=== PATIENT | male | born 1960 | race Caucasian/White ===

== ENCOUNTER 2018-06-21 09:53 | Inpatient (IN) | payer MEDICARE, MEDICAID ==
--- NOTE | 2018-06-21 10:11 | ED ---
Back Pain - HPI Summary HPI Summary: Pt is a 58 y/o male who presents to the ED c/o back pain for 2 days. He was in the ED 2 days ago, and an XR was negative for fracture or dislocation. Pt denies any recent fall, but broke his toe due to a fall 11 days ago. He c/o 10/ 10 left lower back pain radiating down his leg, decreased appetite, and intermittent dizziness. Pt denies any CP, SOB, lightheadedness, dysuria, fever, or nausea. Pain is worse with movement. He had Ibuprofen this morning at 8:00. PMHx anxiety, HTN, developmental delay. No PMHx kidney stones or UTI. 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 Onset/Duration: Gradual Onset, Lasting Days - 2, Still Present Timing: Constant Back Pain Location: Is Discrete @ - Left lower Severity Currently: Mild Pain Intensity: 2 Pain Scale Used: 0-10 Numeric Aggravating Symptom(s): Movement Alleviating Symptom(s): Nothing Associated Signs And Symptoms: Positive: Negative - Allergies/Home Medications Allergies/Adverse Reactions: Allergies Allergy/AdvReac Type Severity Reaction Status Date / Time No Known Allergies Allergy Verified 06/19/18 13:49 PMH/Surg Hx/FS Hx/Imm Hx Endocrine/Hematology History: Denies: Hx Diabetes, Hx Thyroid Disease Cardiovascular History: Reports: Hx Hypertension - on meds Respiratory History: Denies: Hx Asthma, Hx Chronic Obstructive Pulmonary Disease (COPD) GI History: Denies: Hx Ulcer History: Denies: Hx Kidney Stones, Other Problems/Disorders - UTI Neurological History: Reports: Hx Developmental Delay Psychiatric History: Reports: Hx Anxiety - Surgical History Surgery Procedure, Year, and Place: 2008-RIGHT HIP REPLACEMENT Infectious Disease History: No Infectious Disease History: Denies: Hx Hepatitis, Hx Human Immunodeficiency Virus (HIV), Traveled Outside the [place] in Last 30 Days - Family History Known Family History: Positive: Cardiac Disease, Hypertension - Social History Alcohol Use: None Hx Substance Use: No Substance Use Type: Reports: None Hx Tobacco Use: No Smoking Status (MU): Never Smoked Tobacco Review of Systems Negative: Fever Negative: Chest Pain Negative: Shortness Of Breath Positive: Other - Decreased appetite. Negative: Nausea Negative: dysuria Positive: Myalgia - Back pain Neurological: Other - Dizziness, NEGATIVE: lightheadedness All Other Systems Reviewed And Are Negative: Yes Physical Exam - Summary Physical Exam Summary: GENERAL: Patient is a well developed and nourished M who is lying comfortable in the stretcher. Patient is not in any acute respiratory distress. HEAD AND FACE: Normocephalic EYES: PERRLA, EOMI x 2. EARS: Hearing grossly intact. MOUTH: Oropharynx within normal limits. NECK: Supple, trachea is midline, no adenopathy, no JVD, no carotid bruit. CHEST: Symmetric, no tenderness at palpation LUNGS: Clear to auscultation bilaterally. No wheezing or crackles. CVS: Regular rate and rhythm, S1 and S2 present, no murmurs or gallops appreciated. ABDOMEN: Soft. Bowel sounds are normal. No abdominal abnormal pulsations. Tender to LS spine area, no step off. Tender to left paraspinal lumbar region. Straight leg test negative. EXTREMITIES: Full ROM in all major joints, no edema, no cyanosis or clubbing. NEURO: Alert and oriented x 3. No acute neurological deficits. Speech is normal and follows commands. SKIN: Dry and warm Triage Information Reviewed: Yes Vital Signs On Initial Exam: Initial Vitals Temp Pulse Resp BP Pulse Ox 98 F 66 16 162/86 95 06/21/18 10:03 06/21/18 10:03 06/21/18 10:03 06/21/18 10:03 06/21/18 10:03 Vital Signs Reviewed: Yes Diagnostics - Vital Signs Vital Signs Temp Pulse Resp BP Pulse Ox 06/21/18 10:03 98 F 66 16 162/86 95 - Laboratory Result Diagrams: 06/22/18 06:41 06/22/18 06:41 Lab Statement: Any lab studies that have been ordered have been reviewed, and results considered in the medical decision making process. - CT Lumbar Spine CT CT Interpretation: Positive (See Comments) - There is progressive degenerative disc disease in the lower lumbar spine when compared to July 27, 2010 however no new compression fracture is noted. Diffuse osteopenia is noted. ED physician reviewed radiology report. CT Interpretation Completed By: Radiologist CT A/P CT Interpretation: No Acute Changes - No definite evidence of obstructive uropathy. No abnormal masses or fluid collections are noted. ED physician reviewed radiology report. CT Interpretation Completed By: Radiologist - EKG 10:31 Cardiac Rate: NL - 61 bpm EKG Rhythm: Sinus Rhythm EKG Interpretation: Interventricular conduction delay Re-Evaluation - Re-Evaluation First Eval Re-Evaluation Time: 11:54 Change: Unchanged Comment: Informed pt of results. Back Pain Course/Dx - Course Course Of Treatment: Pt is a 58 y/o male who presents to the ED c/o back pain for 2 days. He was in the ED 2 days ago, and an XR was negative for fracture or dislocation. Pt denies any recent fall, but broke his toe due to a fall 11 days ago. He c/o 10/10 left lower back pain radiating down his leg, decreased appetite, and intermittent dizziness. Pt denies any CP, SOB, lightheadedness, dysuria, fever, or nausea. Pain is worse with movement. He had Ibuprofen this morning at 8:00. A physical exam revealed tender to LS spine area, no step off. Tender to left paraspinal lumbar region. Straight leg test negative. A lumbar spine CT revealed there is progressive degenerative disc disease in the lower lumbar spine when compared to July 27, 2010 however no new compression fracture is noted. Diffuse osteopenia is noted. A CT A/P revealed No definite evidence of obstructive uropathy. No abnormal masses or fluid collections are noted. An EKG revealed normal rate of 61 bpm and Interventricular conduction delay. Spoke to Dr. Bardales at 15:01, who accepts pt for admission. [facility] unless [facility], and he failed to ambulate. Final dx are degenerative disc disease of the lumbar spine, and difficulty ambulating. Pt will be admitted and is agreeable with this plan. - Diagnoses Provider Diagnoses: Degenerative disc disease, lumbar, Unable to ambulate - Provider Notifications Discussed Care Of Patient With: Yocasta Bardales Time Discussed With Above Provider: 15:01 Instructed by Provider To: Other - Dr. Bardales accepts pt for admission. He cannot [facility] back to the jail unless he can walk, and pt failed to ambulate. Discharge - Sign-Out/Discharge Documenting (check all that apply): Patient Departure - Admit - Discharge Plan Condition: Stable Disposition: ADMITTED TO [facility] - Billing Disposition and Condition Condition: STABLE Disposition: Admitted to [facility] - Attestation Statements Document Initiated by Hillibe: Yes Documenting Scribe: Alesha Morris Provider For Whom Familia is Documenting (Include Credential): Emeterio Hloman MD Scribe Attestation: Alesha Wren, scribed for Emeterio Holman MD on 06/22/18 at 0725. Scribe Documentation Reviewed: Yes Provider Attestation: The documentation as recorded by the hillibAlesha dumas accurately reflects the service I personally performed and the decisions made by me, Emeterio Holman MD
[2018-06-21] MEDS ORDERED: NS 0.9% 1000 ML* 1,000 ML IV ONE (10:26)
[2018-06-21 10:55] LABS: ABS Basophils 0 10^3/ul (0-0.2); ABS Eosinophils 0.2 10^3/ul (0-0.6); ABS Lymphocytes 0.8 10^3/ul (1.0-4.8); ABS Monocytes 0.5 10^3/ul (0-0.8); ABS Neutrophils 6.2 10^3/ul (1.5-7.7); ABS Nucleated RBC 0 10^3/ul; Eosinophil % 2.3 % (0-6); Hematocrit 37 % (42-52); Hemoglobin 12.4 g/dl (14.0-18.0); Lymphocyte % 10.2 % (25-47); Mean Corpuscular HGB Conc 33 g/dl (31-36); Mean Corpuscular Hemoglobin 31 pg (27-31); Mean Corpuscular Volume 93 fL (80-94); Mean Platelet Volume 8.6 um3 (7.4-10.4); Nucleated Red Blood Cells % 0.1; Platelet Count 188 10^3/ul (150-450); Red Cell Distribution Width 13 % (10.5-15); White Blood Count 7.7 10^3/ul (3.5-10.8)
[2018-06-21 11:13] LABS: EGFR Non-African American 60.6 (>60)
--- NOTE | 2018-06-21 11:22 | RAD ---
Indication: Flank pain evaluate for calculi CT of the abdomen and pelvis was performed without oral or IV contrast administration. Coronal and sagittal reconstructed images were obtained. Comparison is made with previous exam dated March 16, 2014. The lung bases demonstrate no pleural fluid, nodules or masses. Heart is of normal size without evidence of pericardial effusion. Liver is normal in size. No focal lesions or intrahepatic duct dilatation is noted. The spleen is normal in size. Pancreas demonstrates no mass or pancreatic duct dilatation. The common duct is not dilated. The patient is status post cholecystectomy. The spleen is normal in size. No adrenal masses are noted. The kidneys demonstrate no hydronephrosis. No retroperitoneal lymphadenopathy is noted. CT of the pelvis demonstrates no retroperitoneal or pelvic lymphadenopathy. The urinary bladder is unremarkable. The prostate is otherwise unremarkable. The patient has a large amount of stool in the rectal vault. No hernias are noted. The bony structures demonstrate heterotopic ossification around the right hip. IMPRESSION: No definite evidence of obstructive uropathy. No abnormal masses or fluid collections are noted. Patient status post cholecystectomy.
--- NOTE | 2018-06-21 11:26 | RAD ---
Indication: Back pain. CT of the lumbar spine was obtained in the axial plane. Sagittal and coronal reconstructed images were obtained. Comparison is made with previous exam dated July 27, 2010. There is diffuse osteopenia noted. Degenerative disc disease at L5-S1 with spondylytic ridge flattens the thecal sac. No central foraminal stenosis is noted. Vertebral bodies demonstrate grade 1 spondylolisthesis of L4 on 5. No fracture is identified. Degenerative disc disease at L3-L4 is noted. Retrolisthesis of L3 on 4 is noted which is unchanged from previous exam. Mild kyphosis deformity is noted at L1-L2 and T12-L1. Spinal canal appears to be intact. IMPRESSION: There is progressive degenerative disc disease in the lower lumbar spine when compared to July 27, 2010 however no new compression fracture is noted. Diffuse osteopenia is noted.
[2018-06-21] MEDS ORDERED: Magnesium CITRATE* 300 ML BTL PO ONE (11:33)
[2018-06-21 14:10] LABS: Urine Appearance Clear; Urine Blood Negative (Negative); Urine Color Yellow; Urine Ketones 1+ (Negative); Urine Protein Negative (Negative); Urine Specific Gravity 1.018 (1.010-1.030); Urine Urobilinogen Negative (Negative)
[2018-06-21] MEDS ORDERED: Morphine VIAL* 10 MG/ML 1 ML VIAL IV ONE (14:12)
[2018-06-21 15:44] LABS: INR 1.1 (0.77-1.02)
[2018-06-21] MEDS ORDERED: Ketorolac INJ* 15 MG/ML 1 ML VIAL IV PUSH ONE (15:57)
[2018-06-21] MEDS: Acetaminophen TAB* 325 MG PO SCH ×2 (17:47→22:02)
--- NOTE | 2018-06-21 19:36 | HP ---
CC: Dr. Gilbert * HISTORY AND PHYSICAL: DATE OF ADMISSION: 06/21/18 PROVIDER: Joselin Hester NP ATTENDING PHYSICIAN: Dr. Boyle * (report dictated by Joselin Hester NP). PRIMARY CARE PROVIDER: Dr. Gilbert. CHIEF COMPLAINT: Back pain. HISTORY OF PRESENT ILLNESS: Mr. Butler is a very pleasant 58-year-old male with a past medical history of intellectual disability, cardiomyopathy, history of DVT previously on coumadin, anxiety, hypertension, who came to the emergency department via EMS for complaint of back pain. He was just in the emergency department 2 days ago for complaint of back pain and had x-rays that were negative for fracture or dislocation and was sent home. He reports a fall approximately 10 days ago in which he suffered a right big toe fracture. Today , in the emergency department, he underwent abdomen and pelvis CT as well as a lumbar spine CT, which showed no acute fractures or obstructive uropathy or abnormal masses or fluid collections. The patient was unable to ambulate in the ER and will be admitted for intractable back pain. The patient was evaluated in the emergency department, where he was found to be lying in bed, alert and oriented x3. The patient is able to roll [id number] very easily and has good range of motion in his lower extremities, but has difficulty sitting up in the bed reporting low lumbar pain radiating into his right gluteus down his right leg. He denies numbness, tingling. He denies bowel or bladder loss. No recent fevers, chills, nausea, vomiting, diarrhea. He denies abdominal pain. No dysuria, hematuria. He reports good appetite. He reports otherwise he has been feeling well except for his right fractured big toe in which he reports he has been taking ibuprofen for. PAST MEDICAL HISTORY: 1. Chronic kidney disease. 2. Intellectual disability. 3. Hypertension. 4. Obesity. 5. Cardiomyopathy. 6. History of DVT, previously on Coumadin. 7. Anxiety. 8. Hyperlipidemia. 9. History of right hip fracture. MEDICATIONS: 1. Atenolol 25 mg po daily 2. Ibuprofen 400 mg po Q8hr prn 3. Prozac 20 mg po daily 4. Lipitor 10 mg po daily 5. Potassium 10 meq po daily Please note the med rec is currently being completed, the patient has several topical medications. ALLERGIES: No known allergies. FAMILY HISTORY: Unknown. SOCIAL HISTORY: The patient denies tobacco or alcohol abuse. He currently lives at [facility] and is fairly independent. He lists his brother, Russell Butler, as the healthcare proxy, as well as Renée, [phone]. REVIEW OF SYSTEMS: A 14-point review of systems was performed. All the pertinent positives and negatives are mentioned in the history of present illness. Otherwise, are negative. PHYSICAL EXAMINATION GENERAL APPEARANCE: A 58-year-old male, alert and oriented x3, notable mild MR , in no acute distress. [id number] historian. VITAL SIGNS: Temperature 98.0, heart rate 64, respirations 18, pulse oximetry 96 % on room air, blood pressure 139/66. HEENT: Head is normocephalic, atraumatic. Pupils are equal and reactive to light. Oropharynx is clear. Moist mucous membranes. NECK: Supple. LUNGS: Clear to auscultation bilaterally. Good aeration throughout. No accessory muscle use. CARDIAC: S1, S2. Regular rate and rhythm. Trace lower extremity edema. ABDOMEN: Slightly obese, soft, nontender, nondistended. Normal bowel sounds throughout. No CVA tenderness. MUSCULOSKELETAL: Strength is 5/5 throughout and is symmetric. The patient has difficulty when going from the supine position and sitting up, unable to sit up without rolling to his side first. He has some lumbosacral midline tenderness radiating to his right sacroiliac joints. Good sensation throughout. Skin: Right big toe has skin intact with no open areas, no ecchymosis noted. mild tenderness with palpation. can wiggle toe w/o guarding. NEURO: Cranial nerves II through XII are grossly intact. No focal deficits noted. LABORATORY DATA AND DIAGNOSTIC STUDIES: Sodium 137, potassium 4.7, chloride 108, carbon dioxide 21, anion gap 8, BUN 20, creatinine 1.22, glucose 104, lactic acid 1.3, calcium 9.3. Total bilirubin 0.90, AST 19, ALT 15, alkaline phosphatase 85. Troponin 0.01. High sensitivity C-reactive protein 118.4, total protein 7.2, albumin 3.5. INR 1.10. WBC is 7.7, RBC 4.00, Hgb 12.4, Hct 37, MCV 93, MCH 31, MCHC 33, RDW 13, platelet count 188. ESR 80. Abdomen and pelvis CT, impression: "No definite evidence of obstructive uropathy. No abdominal masses or fluid collections were noted." Lumbar spine CT, impression: "There is progressive degenerative disk disease in the lower lumbar spine when compared to 07/27/10, however no new compression fracture was noted. Diffuse osteopenia was noted." EKG, sinus rhythm with a rate of 61. ASSESSMENT AND PLAN: Mr. Butler is a 58-year-old male with a past medical history of intellectual disability, cardiomyopathy, history of deep vein thrombosis previous on coumadin, anxiety, hypertension, who presents to emergency department with low back pain. The patient will be admitted for an intractable back pain. 1. Intractable back pain. The patient did have a fall approximately 10 days ago. It was also reported that he had a massage several days ago, it is possible this worsened his back pain. The patient has good range of motion in his lower extremities, but it appears that this is most likely musculoskeletal and he has a lumbar radiculopathy with possible right sacroiliitis. Will obtain MRI due to him not being able to bear weight. PT and OT to evaluate the patient. We will admit for pain control and mobility. He will need to be able to ambulate well prior to retuning to the [facility]. Will start acetaminophen scheduled 975 mg p.o. q.8 hours. We will hold off on further NSAIDs due to his renal function. The patient does have acute inflammatory markers with an elevated CRP and ESR. 2. Chronic kidney disease. It appears to be around baseline. 3. Hypertension. Controlled. continue atenolol 4. Intellectual disability. The patient is fairly high-functioning and is a good historian. Supportive treatment. 5. Hyperlipidemia. Continue Lipitor. 6. Depression and anxiety. Continue Prozac. 7. DVT prophylaxis. Heparin subcu. 8. Code status. Full code. 9. Hospital status. Observation. 10. Disposition. Medical floor. TIME SPENT: Approximately 60 minutes was spent on this admission. JOSELIN HESTER, LAI [id number]/[facility] #: [id number] DION
--- NOTE | 2018-06-21 21:42 | RAD ---
EXAM: MR Thoracic Spine Without Intravenous Contrast CLINICAL HISTORY: 58 years old, male; Pain; Other: Intractable back pain; Patient HX: Non traumatic left back pain that started on saturday. Elevated esr TECHNIQUE: Magnetic resonance images of the thoracic spine without intravenous contrast in multiple planes. COMPARISON: No relevant prior studies available. FINDINGS: Vertebrae: The normal thoracic kyphosis. Normal marrow signal intensity. Vertebral body heights are maintained. No acute fracture. Discs/spinal canal/neural foramina: T1-T2:There is no disc space narrowing. No canal stenosis or foraminal narrowing. The facet joints are normal. T2-T3:There is no disc space narrowing. No canal stenosis or foraminal narrowing. The facet joints are normal. T3-T4:There is no disc space narrowing. No canal stenosis or foraminal narrowing. The facet joints are normal. T4-T5: Anterior endplate osteophyte disc bulge complex. No canal stenosis or neuroforaminal narrowing. T5-T6: Anterior endplate osteophyte disc bulge complex. No canal stenosis or neural foraminal narrowing. T6-T7: Anterior distal endplate osteophyte complex. No canal stenosis or neuroforaminal narrowing. T7-T8: Anterior endplate osteophyte disc bulge complex. No canal stenosis or neural foraminal narrowing. T8-T9: Anterior plate osteophyte disc bulge complex. No canal stenosis or neural foraminal narrowing. T9-T10: Anterior endplate osteophyte disc bulge complex. No canal stenosis or neural foraminal narrowing. T10-T11: Anterior plate osteophyte disc bulge complex. No canal stenosis or neural foraminal narrowing. T11-T12: Anterior endplate osteophyte disc bulge complex. No canal stenosis or neural foraminal narrowing. Spinal cord: Normal signal intensity of the visualized spinal cord. No epidural collections. Soft tissues: Normal. IMPRESSION: 1. No evidence of osteomyelitis discitis. 2. Mild multilevel thoracic spondylopathy.
--- NOTE | 2018-06-21 21:53 | RAD ---
EXAM: MR Lumbar Spine Without Intravenous Contrast CLINICAL HISTORY: 58 years old, male; Pain; Other: Intractable back pain; Patient HX: Non traumatic left back pain that started on thursday. Elevated esr; Additional info: Intractable back pain/elevated esr TECHNIQUE: Magnetic resonance images of the lumbar spine without intravenous contrast in multiple planes. COMPARISON: No relevant prior studies available. FINDINGS: Vertebrae: No partially reversed lumbar lordosis with grade 1 degenerative anterolisthesis of L4 on L5 and retrolisthesis of L5 on S1. Marrow: Vertebral body heights are maintained. Bilateral vertical T1 hypointense linear foci extend through the sacrum bilaterally without definite extension into the neural foramina. Associated adjacent marrow edema. Digital edema seen in the soft tissues overlying the sacrum anteriorly. Normal lumbar marrow signal intensity. Spinal cord: Cauda equina terminates at T12. Normal signal intensity the visualized cord. Soft tissues: See findings above and below. DISCS/SPINAL CANAL/NEURAL FORAMINA: L1-L2: Partial osseous fusion of the disc space with complete disc space loss. Endplate osteophyte disc bulge complex causing borderline canal stenosis.The facet joints are normal. No neural foraminal narrowing. L2-L3: Mild disc height loss with hyperintensity in the posterior half of the disc space which does not extend into or involve the endplates or the surrounding paravertebral soft tissues. No canal stenosis.The facet joints demonstrate mild degenerative hypertrophy and sclerosis. Mild neural foraminal narrowing. L3-L4: Complete disc height loss with endplate osteophyte disc bulge complex causing no canal stenosis. Bilateral lateral recess narrowing with abutment of the descending L4 nerve roots.The facet joints demonstrate mild degenerative hypertrophy and sclerosis. Severe left and moderate right neural foraminal narrowing with slight flattening of the exiting left L3 nerve root. L4-L5: Disc height loss symmetric disc bulge endplate osteophyte complex and ligament flavum hypertrophy causing severe canal stenosis and splinting of the central nerve roots. Bilateral lateral recess narrowing with likely compression of the descending L5 nerve roots. Severe bilateral neural foraminal narrowing and flattening of the exiting L4 roots. L5-S1: Disc height loss with symmetric endplate osteophyte disc bulge complex causing moderate canal stenosis. Bilateral lateral recess narrowing with abutment of the descending S1 nerve roots without flattening. Severe bilateral neural foraminal narrowing with flattening of the exiting L5 nerve roots. IMPRESSION: 1. Bilateral zone 1 acute sacral fractures. No lumbar spine fractures. 2. Severe multilevel lumbar spondylopathy causing severe L4-L5 and moderate L5-S1 canal stenosis and likely compression of the left L3, bilateral L4, and bilateral L5 nerve roots.
[2018-06-21] MEDS: Atorvastatin* 10 MG TAB PO SCH (22:02)
[2018-06-21] MEDS: Heparin VIAL(*) 5000 UNITS/ML VIAL (FIVE THOUSAND) SUBCUT SCH (22:02)
[2018-06-22] MEDS: Heparin VIAL(*) 5000 UNITS/ML VIAL (FIVE THOUSAND) SUBCUT SCH ×3 (05:45→21:21)
[2018-06-22] MEDS: Acetaminophen TAB* 325 MG PO SCH ×4 (05:49→22:31)
[2018-06-22 07:00] LABS: ABS Basophils 0 10^3/ul (0-0.2); ABS Eosinophils 0.3 10^3/ul (0-0.6); ABS Lymphocytes 1.1 10^3/ul (1.0-4.8); ABS Monocytes 0.6 10^3/ul (0-0.8); ABS Nucleated RBC 0 10^3/ul; Eosinophil % 4.7 % (0-6); Hematocrit 34 % (42-52); Hemoglobin 11.6 g/dl (14.0-18.0); Lymphocyte % 18.3 % (25-47); Mean Corpuscular HGB Conc 34 g/dl (31-36); Mean Corpuscular Hemoglobin 32 pg (27-31); Mean Corpuscular Volume 92 fL (80-94); Mean Platelet Volume 8.2 um3 (7.4-10.4); Nucleated Red Blood Cells % 0; Platelet Count 171 10^3/ul (150-450); Red Blood Count 3.68 10^6/ul (4.00-5.40); Red Cell Distribution Width 13 % (10.5-15); White Blood Count 6.1 10^3/ul (3.5-10.8)
[2018-06-22 07:04] LABS: INR 1.05 (0.77-1.02)
[2018-06-22 07:22] LABS: EGFR Non-African American 68.3 (>60)
[2018-06-22] MEDS ORDERED: Acetaminophen TAB* 325 MG PO PRN (08:26)
[2018-06-22] MEDS: Lidocaine PATCH 5%* 1 PATCH TRANSDERM SCH (09:07)
[2018-06-22] MEDS: FLUoxetine CAP* 20 MG PO SCH (09:08)
[2018-06-22] MEDS: Atenolol TAB* 25 MG PO SCH (09:08)
[2018-06-22] MEDS: Ascorbic Acid TAB* 500 MG PO SCH (09:12)
--- NOTE | 2018-06-22 10:28 | PN ---
Subjective Date of Service: 06/22/18 Interval History: pt stated that he fell on his "butt" at the end of May 2018 He had problems with walking ever since. denies back pain before today c/o b/l back pain in the buttock area Objective Active Medications: Acetaminophen (Tylenol Tab*) 975 mg PO Q6H [facility] Last Admin: 06/22/18 05:49 Dose: 975 mg Acetaminophen (Tylenol Tab*) 650 mg PO Q4H PRN PRN Reason: TEMP > 100 or PAIN Ascorbic Acid (Vitamin C Tab*) 500 mg PO DAILY [facility] Last Admin: 06/22/18 09:12 Dose: 500 mg Atenolol (Tenormin Tab*) 25 mg PO DAILY [facility] Last Admin: 06/22/18 09:08 Dose: 25 mg Atorvastatin Calcium (Lipitor*) 10 mg PO BEDTIME [facility] Last Admin: 06/21/18 22:02 Dose: 10 mg Fluoxetine HCl (Prozac Cap*) 20 mg PO DAILY [facility] Last Admin: 06/22/18 09:08 Dose: 20 mg Heparin Sodium (Porcine) (Heparin Vial(*)) 5,000 units SUBCUT Q8HR [facility] Last Admin: 06/22/18 05:45 Dose: 5,000 units Lidocaine (Lidoderm 5% Patch*) 1 patch TRANSDERM DAILY [facility] Last Admin: 06/22/18 09:07 Dose: 1 patch Pharmacy Profile Note (Lidocaine Patch Remove*) 1 note PATCH OFF 2100 [facility] Vital Signs - 8 hr 06/22/18 06/22/18 03:49 07:34 Temperature 97.5 F 98.8 F Pulse Rate 53 59 Respiratory 20 16 Rate Blood Pressure 147/74 130/66 (mmHg) O2 Sat by Pulse 98 94 Oximetry Oxygen Devices in Use Now: None Appearance: 58 yo M in nAD, aAOx3, poor historian, problems with word finding- chronic Eyes: No Scleral Icterus, PERRLA Ears/Nose/Mouth/Throat: NL Teeth, Lips, Gums, Mucous Membranes Moist Neck: NL Appearance and Movements; NL JVP, Trachea Midline Respiratory: Symmetrical Chest Expansion and Respiratory Effort, Clear to Auscultation Cardiovascular: NL Sounds; No Murmurs; No JVD, RRR Abdominal: NL Sounds; No Tenderness; No Distention, - - back, sacral area: tender to palpation on b/l buttock area Lymphatic: No Cervical Adenopathy, No Axillary Adenopathy, No Auricular Adenopathy Skin: No Rash or Ulcers, No Nodules or Sclerosis Neurological: Alert and Oriented x 3, NL Muscle Strength and Tone Result Diagrams: 06/22/18 06:41 06/22/18 06:41 Assess/Plan/Problems-Billing Assessment: 58 yo M with h/o intellectual disability, HTN, dyslipidemia, who lives at [facility] and ambulates with a walker presents c/o lower back pain MRI shows b/l sacral bone fx - Patient Problems (1) Closed zone 1 fracture of sacrum Comment: pt reports a fall at and of May 2018 cont PT/OT pain control (2) Lumbar spinal stenosis Comment: noted on MRI Pt does not appear to have neuro deficit and did not c/o back pain prior to fall in 05/2018 will d/w neurosurgery, cont PT (3) HTN (hypertension) Comment: controlled, cont Atenolol (4) Dyslipidemia Comment: cont lipitor (5) DVT prophylaxis Comment: HSQ Status and Disposition: OBV will be changed to inpatient for b/l sacral bone fx, pt needs more PT , possible STR
[2018-06-22] MEDS ORDERED: Morphine INJ* 2 MG/ML 1 ML SYRINGE (TWO MG - NEW SYRINGE VERSION) IV PRN (10:30)
[2018-06-22] MEDS: Atorvastatin* 10 MG TAB PO SCH (20:55)
[2018-06-22] MEDS: Lidocaine Patch REMOVE* 1 NOTE MISC PATCH OFF SCH (21:24)
[2018-06-23] MEDS: Acetaminophen TAB* 325 MG PO SCH ×4 (04:03→22:24)
[2018-06-23] MEDS: Heparin VIAL(*) 5000 UNITS/ML VIAL (FIVE THOUSAND) SUBCUT SCH ×3 (07:14→22:25)
[2018-06-23] MEDS: FLUoxetine CAP* 20 MG PO SCH (08:50)
[2018-06-23] MEDS: Atenolol TAB* 25 MG PO SCH (08:51)
[2018-06-23] MEDS: Lidocaine PATCH 5%* 1 PATCH TRANSDERM SCH (08:51)
[2018-06-23] MEDS: Ascorbic Acid TAB* 500 MG PO SCH (08:51)
--- NOTE | 2018-06-23 12:44 | PN ---
Subjective Date of Service: 06/23/18 Interval History: pt is about to try to get up with PT. Fearful, but encouraged by staff. No new complaints. Still c/o his "hips hurting" Objective Active Medications: Acetaminophen (Tylenol Tab*) 975 mg PO Q6H [facility] Last Admin: 06/23/18 10:46 Dose: 975 mg Acetaminophen (Tylenol Tab*) 650 mg PO Q4H PRN PRN Reason: TEMP > 100 or PAIN Ascorbic Acid (Vitamin C Tab*) 500 mg PO DAILY [facility] Last Admin: 06/23/18 08:51 Dose: 500 mg Atenolol (Tenormin Tab*) 25 mg PO DAILY [facility] Last Admin: 06/23/18 08:51 Dose: 25 mg Atorvastatin Calcium (Lipitor*) 10 mg PO BEDTIME [facility] Last Admin: 06/22/18 20:55 Dose: 10 mg Fluoxetine HCl (Prozac Cap*) 20 mg PO DAILY [facility] Last Admin: 06/23/18 08:50 Dose: 20 mg Heparin Sodium (Porcine) (Heparin Vial(*)) 5,000 units SUBCUT Q8HR [facility] Last Admin: 06/23/18 12:34 Dose: 5,000 units Lidocaine (Lidoderm 5% Patch*) 1 patch TRANSDERM DAILY [facility] Last Admin: 06/23/18 08:51 Dose: 1 patch Morphine Sulfate (Morphine Inj ((Syringe))*) 1 mg IV Q4H PRN PRN Reason: PAIN Pharmacy Profile Note (Lidocaine Patch Remove*) 1 note PATCH OFF 2100 [facility] Last Admin: 06/22/18 21:24 Dose: 1 note Vital Signs - 8 hr 06/23/18 06/23/18 07:40 08:00 Temperature 97.5 F Pulse Rate 54 Respiratory 16 18 Rate Blood Pressure 128/69 (mmHg) O2 Sat by Pulse 99 Oximetry Oxygen Devices in Use Now: None Appearance: 58 yo m in NAD, AAOx2, significant dysarthia makes communication limited Eyes: No Scleral Icterus, PERRLA Ears/Nose/Mouth/Throat: NL Teeth, Lips, Gums, Mucous Membranes Moist Neck: NL Appearance and Movements; NL JVP, Trachea Midline Respiratory: Symmetrical Chest Expansion and Respiratory Effort, Clear to Auscultation Cardiovascular: NL Sounds; No Murmurs; No JVD, RRR Abdominal: NL Sounds; No Tenderness; No Distention, No Hepatosplenomegaly, - - back-tender on b/l buttocks Lymphatic: No Cervical Adenopathy Extremities: No Edema, No Clubbing, Cyanosis Skin: No Rash or Ulcers, No Nodules or Sclerosis Neurological: Alert and Oriented x 3, NL Muscle Strength and Tone Result Diagrams: 06/22/18 06:41 06/22/18 06:41 Microbiology and Other Data: Microbiology 06/21/18 10:44 Aerobic Blood Culture - Preliminary Blood Venous No Growth Day 2 Anaerobic Blood Culture - Preliminary No Growth Day 2 Assess/Plan/Problems-Billing Assessment: 58 yo M with h/o intellectual disability, HTN, dyslipidemia, who lives at [facility] and ambulates with a walker presents c/o lower back pain MRI shows b/l sacral bone fx - Patient Problems (1) Closed zone 1 fracture of sacrum Comment: pt reports a fall at and of May 2018 cont PT/OT pain control (2) Lumbar spinal stenosis Comment: noted on MRI Pt does not appear to have neuro deficit and did not c/o back pain prior to fall in 05/2018 D/w neurosurgery( Dr. Barrios), cont PT, f/u with enurosurgery as outpatient (3) HTN (hypertension) Comment: controlled, cont Atenolol (4) Dyslipidemia Comment: cont lipitor (5) CRP elevated Comment: and ESR-? due to inflammatory reaction after a fall? No evidence of infection so far, will recheck CRP in aM (6) DVT prophylaxis Comment: HSQ Status and Disposition: inpatient awaiting STR
--- NOTE | 2018-06-23 19:51 | DS ---
CC: Dr. Gilbert; Dr. Celeste, the Director of [facility] * DISCHARGE SUMMARY: DATE OF ADMISSION: 06/21/18 DATE OF ANTICIPATED DISCHARGE: 06/24/18 Please also note and please regard this discharge summary as an initial history and physical of the patient's admission to [facility] that is planned to occur on 06/24/18. PRIMARY CARE PROVIDER: Dr. Gilbert. DISCHARGE DIAGNOSES: 1. Status post fall with resultant bilateral T1 zone closed sacral bone fractures. 2. Acquired lumbar spinal stenosis. 3. Physical deconditioning. SECONDARY DIAGNOSES: 1. History of chronic kidney disease. 2. History of intellectual disability. 3. Hypertension. 4. Obesity. 5. History of cardiomyopathy. 6. History of deep venous thrombosis, previously on Coumadin. 7. History of anxiety. 8. Hyperlipidemia. 9. History of right hip fracture in the past. MEDICATIONS AT DISCHARGE: Include: 1. Acetaminophen 650 mg every 4 hours p.r.n. 2. Vitamin C 500 mg daily. 3. Atenolol 25 mg daily. 4. Lipitor 10 mg at bedtime. 5. Prozac 20 mg daily. 6. Ibuprofen 400 mg every 8 hours p.r.n. 7. Nizoral cream 2% one application monthly. 8. Metronidazole topical cream 0.75% one topical to face at bedtime. 9. Mouthwash 5 mL swish and spit b.i.d. 10. Triple antibiotic ointment topical b.i.d. to affected areas on the skin. 11. Potassium chloride 10 mEq daily. 12. Silvadene 1 topically daily to affected area on the skin. 13. Kenalog cream 1 topical daily p.r.n. to affected skin. 14. Lidocaine patch 5% one patch transdermally to painful area on the back. LABORATORY DATA AND STUDIES PERFORMED DURING THE HOSPITAL STAY: Included: On 06/22/18, white blood cell count of 6.1, hemoglobin of 11.6, hematocrit of 34, and platelets of 171. Sodium was 139, potassium 4.6, chloride 109, carbon dioxide 25, BUN 23, creatinine 1.1. C-reactive protein at admission was 123 and repeat C- reactive protein 24 hours later was 92. The patient's ESR initially was 80 and fell down to 67 on 06/22/18. Urinalysis was grossly unremarkable. Blood cultures obtained on admission were negative. Thoracic spine MRI obtained on 06/21/18, impression: "No evidence of osteomyelitis or diskitis. Multilevel thoracic spondylopathy." Lumbar spine MRI, impression: 1. "Bilateral zone 1 acute sacral fractures. No lumbar spine fractures. 2. Severe multilevel lumbar spondylopathy causing severe L4-L5 and moderate L5- S1 central canal stenosis and likely compression of the left L3 and bilateral L4 and bilateral L5 nerve roots." Abdomen and pelvis CT obtained on 06/21/18, impression: "No definitive evidence of obstructive uropathy. No abdominal masses or fluid collections are noted. The patient is status post cholecystectomy." Lumbar spine CT obtained on 06/21/18, impression: "There is progressive degenerative disk disease in the lower lumbar spine when compared to 07/27/10. However, no new compression fracture is noted. Diffuse osteopenia is noted." HOSPITALIZATION COURSE: Romulo Butler is a very nice 58-year-old male with history of hypertension and intellectual disability, who lives at [facility] and at his baseline ambulates with either regular walker or a cane. The patient stated that he fell at the end of May of 2018 and landed on his buttocks. Since then, he has had problems with bilateral hip pain, left more than right. He came to the emergency department, evaluated once and nothing was found. Subsequently, he came back on 06/21/18 complaining of severe pain and inability to ambulate. At that point, he was placed on overnight observation, and although initial CT scans did not show any abnormalities, lumbar spine MRI showed bilateral sacral ala fractures. The patient continued to be evaluated by Physical Therapy during his hospital stay and short-term rehabilitation placement was recommended. During his hospital stay, the patient required Tylenol only. He had marked ambulatory dysfunction. It was noted that the patient has elevation of his inflammatory markers, but no infection was found. It is possible that the elevation is due to inflammatory changes due to his fractures. For physical exam at discharge, please see daily progress notes. The patient is being discharged/transferred to [facility] for further rehabilitation and that is planned on 06/24/18. Please note that this is a short summary of the patient's hospitalization. Please refer to further medical records for details. TIME SPENT: Approximately 40 minutes was spent on the patient's discharge. [id number]/[facility] #: [id number] [facility]
[2018-06-23] MEDS: Atorvastatin* 10 MG TAB PO SCH (22:24)
[2018-06-23] MEDS: Lidocaine Patch REMOVE* 1 NOTE MISC PATCH OFF SCH (22:25)
[2018-06-24] MEDS: Acetaminophen TAB* 325 MG PO SCH (06:12)
[2018-06-24] MEDS: Heparin VIAL(*) 5000 UNITS/ML VIAL (FIVE THOUSAND) SUBCUT SCH (06:19)
[2018-06-24] MEDS: Ascorbic Acid TAB* 500 MG PO SCH (07:15)
[2018-06-24] MEDS: Atenolol TAB* 25 MG PO SCH (07:15)
[2018-06-24] MEDS: FLUoxetine CAP* 20 MG PO SCH (07:15)
[2018-06-24 07:16] LABS: ABS Basophils 0 10^3/ul (0-0.2); ABS Eosinophils 0.1 10^3/ul (0-0.6); ABS Lymphocytes 1.2 10^3/ul (1.0-4.8); ABS Monocytes 0.5 10^3/ul (0-0.8); ABS Neutrophils 3.9 10^3/ul (1.5-7.7); ABS Nucleated RBC 0 10^3/ul; Eosinophil % 2.4 % (0-6); Hematocrit 36 % (42-52); Hemoglobin 12.2 g/dl (14.0-18.0); Lymphocyte % 20.7 % (25-47); Mean Corpuscular HGB Conc 34 g/dl (31-36); Mean Corpuscular Hemoglobin 31 pg (27-31); Mean Corpuscular Volume 92 fL (80-94); Nucleated Red Blood Cells % 0; Platelet Count 219 10^3/ul (150-450); Red Cell Distribution Width 13 % (10.5-15); White Blood Count 5.8 10^3/ul (3.5-10.8)
[2018-06-24] MEDS: Lidocaine PATCH 5%* 1 PATCH TRANSDERM SCH (07:17)
[2018-06-24 07:41] LABS: EGFR Non-African American 68.3 (>60)
[2018-06-24 07:44] VITALS: BP 131/55
== END 2018-06-24 10:35 | DRG 552 ==
LOC: ED 09:53 → MED 15:36 → OBSVTOIN 06-22 10:26
PROVIDERS: ADMIT Internal Medicine; ATTEND Internal Medicine
DX: S32.119A Unspecified Zone I fracture of sacrum, initial encounter for closed fracture (principal); I42.9 Cardiomyopathy, unspecified; I12.9 Hypertensive chronic kidney disease with stage 1 through stage 4 chronic kidney disease, or unspecified chronic kidney disease; W19.XXXA Unspecified fall, initial encounter; F79 Unspecified intellectual disabilities; F41.9 Anxiety disorder, unspecified; F32.9 Major depressive disorder, single episode, unspecified; N18.9 Chronic kidney disease, unspecified; E66.9 Obesity, unspecified; E78.5 Hyperlipidemia, unspecified; I34.0 Nonrheumatic mitral (valve) insufficiency; R62.50 Unspecified lack of expected normal physiological development in childhood; Z96.641 Presence of right artificial hip joint; M51.36 Other intervertebral disc degeneration, lumbar region; M48.061 Spinal stenosis, lumbar region without neurogenic claudication; M47.814 Spondylosis without myelopathy or radiculopathy, thoracic region; M47.816 Spondylosis without myelopathy or radiculopathy, lumbar region; M85.88 Other specified disorders of bone density and structure, other site; R79.82 Elevated C-reactive protein (CRP); Z68.35 Body mass index [BMI] 35.0-35.9, adult; Y92.9 Unspecified place or not applicable; Z86.718 Personal history of other venous thrombosis and embolism; Z82.49 Family history of ischemic heart disease and other diseases of the circulatory system; Z90.49 Acquired absence of other specified parts of digestive tract; Z23 Encounter for immunization
CPT/HCPCS: 36415; 72131; 72146; 72148; 74176; 80048; 80053; 81003; 83605; 83735; 84484; 85025; 85610; 85652; 86140; 86141; 87040; 90686; 93005; 99282; 99284; A9270-GY; G0378; G8978-GP-CK; G8978-GP-CL; G8979-GP-CH; G8987-GO-CJ; G8988-GO-CI; J1644; J1885; J2270

== ENCOUNTER 2023-09-02 17:18 | Inpatient (IN) ==
[2023-09-02] MEDS ORDERED: Lactated Ringers SEPSIS* BAG 2,400 ML IV ONE (18:05)
[2023-09-02] MEDS ORDERED: Cefepime 2 GM in Dextrose 2 GM/50 ML BAG IV ONE (18:05)
[2023-09-02] MEDS ORDERED: metroNIDAZOLE IV 500 MG/100ML 500 MG/100 ML BAG IVPB ONE (18:05)
[2023-09-02 18:55] LABS: ABS Basophils 0.1 10^3/uL (0.0-0.1); ABS Lymphocytes 0.5 10^3/uL (1.0-4.8); ABS Neutrophils 16.6 10^3/uL (1.5-7.6); Hematocrit 31.5 % (38-53); Hemoglobin 10.1 g/dL (13.2-16.3); Lymphocyte % 2.5 %; Mean Corpuscular Hemoglobin 27.3 pg (27-33); Mean Corpuscular Hgb Conc 32.1 g/dL (31-36); Mean Corpuscular Volume 85.1 fL (80-97); Mean Platelet Volume 7.9 fL (7.5-11.2); Platelet Count 364 10^3/uL (150-450); Red Cell Distribution Width 15.8 % (12-17); White Blood Count 18.1 10^3/uL (3.6-10.2)
[2023-09-02] MEDS ORDERED: Vancomycin 1,750 MG in NS 0.9% 250 ml 250 ML IVPB SCH (19:00)
[2023-09-02] MEDS ORDERED: Vancomycin 1,750 MG in NS 0.9% 500 ml BAG 500 ML IVPB ONE (19:00)
[2023-09-02 19:08] LABS: Activated Partial Thrombo Time 36.1 seconds (26.0-38.0); INR 1.32 (0.83-1.13)
[2023-09-02 19:20] LABS: Albumin 3.3 g/dL (3.2-5.2); Albumin/Globulin Ratio 0.7 (1-3); C Reactive Protein 155.5 mg/L (<8.01); Calcium 9.1 mg/dL (8.6-10.3); Creatinine, Serum 1.36 mg/dL (0.67-1.17); Globulin 4.8 g/dL (2-4); Potassium 4.1 mmol/L (3.5-5.0); Total Bilirubin 0.5 mg/dL (0.2-1.0); Total Protein 8.1 g/dL (6.4-8.9); eGFR CKD-EPI 57.8 (>60)
[2023-09-02 19:47] LABS: Urine Appearance Clear; Urine Bilirubin Negative (Negative); Urine Blood 3+ (Negative); Urine Color Yellow; Urine Glucose Negative (Negative); Urine Ketones Negative (Negative); Urine Nitrite Negative (Negative); Urine Protein Negative (Negative); Urine Specific Gravity 1.017 (1.002-1.030); Urine Urobilinogen Negative (Negative)
[2023-09-02 20:06] LABS: Urine Bacteria Absent (Absent); Urine Red Blood Cell 3+(>10/hpf) (Absent); Urine Squamous Epithelial Cell Present (Absent); Urine White Blood Cell Absent (Absent)
[2023-09-02 20:32] LABS: High Sensitivity Troponin 1 Hr 14 pg/mL (<20)
[2023-09-02] MEDS ORDERED: Ondansetron 4 mg VIAL 2 MG/ML 2 ml VIAL IV PRN (20:32)
[2023-09-02] MEDS: Heparin 5000 UNITS/ML 1 mL VIAL SUBCUT SCH (20:53)
[2023-09-02] MEDS ORDERED: Iodixanol (CONTRAST) 320 MG/ML 100 ML SDV IV ONE (21:09)
[2023-09-02 22:19] LABS: Ferritin 133.8 ng/mL (24-336)
[2023-09-02 22:22] LABS: Folate > 20.00 ng/mL (5.90-24.80)
[2023-09-02 22:23] LABS: Vitamin B12 590 pg/mL (180-914)
[2023-09-02 22:54] LABS: .Transferrin 155 mg/dL (203-362); Total Iron Binding Capacity 217 mcg/dL (250-450)
[2023-09-02] MEDS ORDERED: Vancomycin per Pharmacy 1 EA NOTE FOLLOW UP SCH (23:00)
[2023-09-03] MEDS ORDERED: Cefepime 2 GM in Dextrose 2 GM/50 ML BAG IV SCH (06:00)
[2023-09-03 06:47] LABS: ABS Basophils 0.1 10^3/uL (0.0-0.1); ABS Lymphocytes 0.7 10^3/uL (1.0-4.8); ABS Monocytes 1.4 10^3/uL (0.0-1.1); ABS Neutrophils 15.6 10^3/uL (1.5-7.6); ABS Nucleated RBC 0.02 10^3/ul; Hematocrit 26.1 % (38-53); Hemoglobin 8.6 g/dL (13.2-16.3); Lymphocyte % 4.1 %; Mean Corpuscular Hemoglobin 27.9 pg (27-33); Mean Corpuscular Hgb Conc 32.9 g/dL (31-36); Mean Platelet Volume 8.1 fL (7.5-11.2); Nucleated Red Blood Cells % 0.1 %/100WBC (0.0-0.8); Platelet Count 274 10^3/uL (150-450); Red Blood Count 3.07 10^6/uL (4.06-5.63); Red Cell Distribution Width 15.7 % (12-17); White Blood Count 17.8 10^3/uL (3.6-10.2)
[2023-09-03 06:55] LABS: C Reactive Protein 193.16 mg/L (<8.01); Calcium 8.7 mg/dL (8.6-10.3); Creatinine, Serum 1.05 mg/dL (0.67-1.17); Potassium 3.8 mmol/L (3.5-5.0); eGFR CKD-EPI 78.8 (>60)
[2023-09-03] MEDS: Heparin 5000 UNITS/ML 1 mL VIAL SUBCUT SCH ×3 (07:34→21:07)
[2023-09-03] MEDS: Vancomycin 750 MG in NS 0.9% 250 ML IVPB SCH ×2 (07:59→21:07)
[2023-09-03] MEDS: Potassium Chlor 10 meq TAB PO SCH (07:59)
[2023-09-03] MEDS: Cefepime 2 GM in Dextrose 2 GM/50 ML BAG IV SCH ×2 (10:19→22:53)
[2023-09-03] MEDS: Nystatin TOP POWDER 15 GM BTL TOPICAL SCH ×2 (12:34→21:07)
[2023-09-04] MEDS: Heparin 5000 UNITS/ML 1 mL VIAL SUBCUT SCH ×2 (05:41→14:27)
[2023-09-04 06:44] LABS: ABS Lymphocytes 0.6 10^3/uL (1.0-4.8); ABS Monocytes 1.1 10^3/uL (0.0-1.1); ABS Neutrophils 12.8 10^3/uL (1.5-7.6); Hematocrit 26.1 % (38-53); Hemoglobin 8.5 g/dL (13.2-16.3); Lymphocyte % 4.4 %; Mean Corpuscular Hemoglobin 27.9 pg (27-33); Mean Corpuscular Hgb Conc 32.7 g/dL (31-36); Mean Corpuscular Volume 85.3 fL (80-97); Mean Platelet Volume 8.3 fL (7.5-11.2); Platelet Count 257 10^3/uL (150-450); Red Blood Count 3.06 10^6/uL (4.06-5.63); White Blood Count 14.6 10^3/uL (3.6-10.2)
[2023-09-04 07:16] LABS: Calcium 8.8 mg/dL (8.6-10.3); Creatinine, Serum 1.03 mg/dL (0.67-1.17); Potassium 3.8 mmol/L (3.5-5.0); eGFR CKD-EPI 80.6 (>60)
[2023-09-04] MEDS ORDERED: Vancomycin Trough Check NOTE FOLLOW UP ONE (07:30)
[2023-09-04 07:41] LABS: Vancomycin Trough 12.3 mcg/mL
[2023-09-04] MEDS: Vancomycin 750 MG in NS 0.9% 250 ML IVPB SCH (10:00)
[2023-09-04] MEDS ORDERED: Vancomycin 1000 MG in NS 0.9% 250 ML IVPB SCH (10:00)
[2023-09-04] MEDS: Potassium Chlor 10 meq TAB PO SCH (10:59)
[2023-09-04] MEDS: Cefepime 2 GM in Dextrose 2 GM/50 ML BAG IV SCH (11:02)
[2023-09-04] MEDS: Nystatin TOP POWDER 15 GM BTL TOPICAL SCH ×2 (11:04→20:50)
[2023-09-04] MEDS: cefTRIAXone 2 gm/50 mL D5W 2 GM/50 ML BAG IV SCH (12:15)
[2023-09-04] MEDS ORDERED: Sulfur Hexaflouride MICROSPHR 25 MG VIAL ONE ×2 (14:47)
[2023-09-04] MEDS: Enoxaparin 40 MG/0.4 ML SYR SUBCUT SCH (20:50)
[2023-09-05 07:08] LABS: ABS Lymphocytes 0.9 10^3/uL (1.0-4.8); ABS Monocytes 0.9 10^3/uL (0.0-1.1); ABS Neutrophils 8.7 10^3/uL (1.5-7.6); Eosinophil % 0.3 %; Hematocrit 27.8 % (38-53); Hemoglobin 9.2 g/dL (13.2-16.3); Lymphocyte % 8.7 %; Mean Corpuscular Hemoglobin 27.9 pg (27-33); Mean Corpuscular Hgb Conc 33.2 g/dL (31-36); Mean Platelet Volume 8.1 fL (7.5-11.2); Platelet Count 295 10^3/uL (150-450); Red Blood Count 3.31 10^6/uL (4.06-5.63); Red Cell Distribution Width 15.7 % (12-17); White Blood Count 10.6 10^3/uL (3.6-10.2)
[2023-09-05 07:28] LABS: Calcium 8.9 mg/dL (8.6-10.3); Creatinine, Serum 1.02 mg/dL (0.67-1.17); eGFR CKD-EPI 81.6 (>60)
[2023-09-05] MEDS: Potassium Chlor 10 meq TAB PO SCH (09:06)
[2023-09-05] MEDS: Nystatin TOP POWDER 15 GM BTL TOPICAL SCH ×2 (09:06→21:24)
[2023-09-05] MEDS: cefTRIAXone 2 gm/50 mL D5W 2 GM/50 ML BAG IV SCH (09:07)
[2023-09-05] MEDS: Senna TAB 8.6 mg TAB PO PRN (21:24)
[2023-09-05] MEDS: Polyethylene Glycol 3350 17 GM PACKET PO PRN (21:24)
[2023-09-05] MEDS: Enoxaparin 40 MG/0.4 ML SYR SUBCUT SCH (21:24)
[2023-09-06] MEDS: Potassium Chlor 10 meq TAB PO SCH (09:12)
[2023-09-06] MEDS: Nystatin TOP POWDER 15 GM BTL TOPICAL SCH ×2 (09:13→20:27)
[2023-09-06] MEDS ORDERED: Vancomycin Trough Check NOTE FOLLOW UP ONE (09:30)
[2023-09-06] MEDS: cefTRIAXone 2 gm/50 mL D5W 2 GM/50 ML BAG IV SCH (12:01)
[2023-09-06] MEDS: Polyethylene Glycol 3350 17 GM PACKET PO PRN (20:26)
[2023-09-06] MEDS: Senna TAB 8.6 mg TAB PO PRN (20:26)
[2023-09-06] MEDS: Enoxaparin 40 MG/0.4 ML SYR SUBCUT SCH (20:27)
[2023-09-07 06:15] LABS: ABS Eosinophils 0.1 10^3/uL (0.0-0.5); ABS Monocytes 0.7 10^3/uL (0.0-1.1); ABS Neutrophils 4.9 10^3/uL (1.5-7.6); Eosinophil % 2.1 %; Hematocrit 29.5 % (38-53); Hemoglobin 9.6 g/dL (13.2-16.3); Lymphocyte % 14.8 %; Mean Corpuscular Hemoglobin 27.3 pg (27-33); Mean Corpuscular Hgb Conc 32.8 g/dL (31-36); Mean Corpuscular Volume 83.4 fL (80-97); Mean Platelet Volume 8.6 fL (7.5-11.2); Nucleated Red Blood Cells % 0.1 %/100WBC (0.0-0.8); Platelet Count 317 10^3/uL (150-450); Red Blood Count 3.53 10^6/uL (4.06-5.63); Red Cell Distribution Width 15.9 % (12-17); White Blood Count 6.8 10^3/uL (3.6-10.2)
[2023-09-07 06:34] LABS: C Reactive Protein 177.19 mg/L (<8.01); Calcium 8.7 mg/dL (8.6-10.3); Creatinine, Serum 1.06 mg/dL (0.67-1.17); Potassium 4.1 mmol/L (3.5-5.0); eGFR CKD-EPI 77.9 (>60)
[2023-09-07] MEDS: Nystatin TOP POWDER 15 GM BTL TOPICAL SCH ×2 (08:49→20:54)
[2023-09-07] MEDS: Potassium Chlor 10 meq TAB PO SCH (08:49)
[2023-09-07] MEDS: cefTRIAXone 2 gm/50 mL D5W 2 GM/50 ML BAG IV SCH (08:57)
[2023-09-07] MEDS: Enoxaparin 40 MG/0.4 ML SYR SUBCUT SCH (20:54)
[2023-09-08] MEDS: cefTRIAXone 2 gm/50 mL D5W 2 GM/50 ML BAG IV SCH (08:38)
[2023-09-08] MEDS: Potassium Chlor 10 meq TAB PO SCH (08:39)
[2023-09-08] MEDS: Nystatin TOP POWDER 15 GM BTL TOPICAL SCH ×2 (08:40→20:21)
[2023-09-08] MEDS: Enoxaparin 40 MG/0.4 ML SYR SUBCUT SCH (20:21)
[2023-09-09] MEDS: Potassium Chlor 10 meq TAB PO SCH (08:55)
[2023-09-09] MEDS: cefTRIAXone 2 gm/50 mL D5W 2 GM/50 ML BAG IV SCH (08:56)
[2023-09-09] MEDS: Nystatin TOP POWDER 15 GM BTL TOPICAL SCH ×2 (08:56→20:04)
[2023-09-09 16:10] LABS: Rapid COVID-19 Molecular Undetected (Undetected)
[2023-09-09] MEDS: Enoxaparin 40 MG/0.4 ML SYR SUBCUT SCH (20:04)
[2023-09-10 05:40] LABS: ABS Eosinophils 0.3 10^3/uL (0.0-0.5); ABS Lymphocytes 0.9 10^3/uL (1.0-4.8); ABS Monocytes 0.8 10^3/uL (0.0-1.1); Eosinophil % 4.1 %; Hematocrit 28.8 % (38-53); Hemoglobin 9.5 g/dL (13.2-16.3); Lymphocyte % 13.1 %; Mean Corpuscular Hemoglobin 27.4 pg (27-33); Mean Corpuscular Hgb Conc 32.8 g/dL (31-36); Mean Corpuscular Volume 83.4 fL (80-97); Mean Platelet Volume 8.2 fL (7.5-11.2); Platelet Count 391 10^3/uL (150-450); Red Blood Count 3.45 10^6/uL (4.06-5.63)
[2023-09-10 05:59] LABS: Calcium 9.3 mg/dL (8.6-10.3); Creatinine, Serum 0.88 mg/dL (0.67-1.17); Potassium 4.1 mmol/L (3.5-5.0); eGFR CKD-EPI 95.4 (>60)
[2023-09-10 07:54] LABS: C Reactive Protein 153.65 mg/L (<8.01)
[2023-09-10] MEDS: Potassium Chlor 10 meq TAB PO SCH (08:33)
[2023-09-10 08:39] VITALS: BP 116/72
[2023-09-10] MEDS: Nystatin TOP POWDER 15 GM BTL TOPICAL SCH (08:40)
== END 2023-09-10 11:00 | DRG 871 ==
LOC: EDHOLD 17:18 → ED 17:18 → SUATTDRO 20:02 → MED 22:54 → SUATTDRO 09-04 11:11
PROVIDERS: ADMIT Internal Medicine; ATTEND Internal Medicine